=== PATIENT | male | born 1965 | race African-American/Black ===

== ENCOUNTER → 2017-06-25 | Outpatient (CLI) | payer BC ==
--- NOTE | 2017-06-25 12:23 | REP ---
Left ring finger series: Four views. History: Pain in the fourth finger. Findings: Four views of the left ring finger demonstrate normal bones, joints, and soft tissues. No fracture, subluxation or other acute bony abnormality is seen. Impression: Negative left ring finger views. Signed by Aamir Chow MD 06/25/2017 12:31 P
== END ==
LOC: M WUC 11:40
PROVIDERS: ATTEND Physician Assistant
DX: M79.645 Pain in left finger(s) (principal)